=== PATIENT | male | born 1930 | race Caucasian/White ===

== ENCOUNTER 2016-05-17 08:29 | Emergency (ER) | payer MEDICARE, BC ==
[2016-05-17 08:45] VITALS: BP 142/79; PULSE 66; RESP 18; TEMP 96.8
--- NOTE | 2016-05-17 09:17 | ED ---
General Adult HPI - General Chief complaint: Neuro Symptoms/Deficit Stated complaint: facial swelling, poss med reaction Time Seen by Provider: 05/17/16 08:48 Source: patient, RN notes reviewed, old records reviewed Mode of arrival: ambulatory Limitations: no limitations - History of Present Illness Initial comments: This is an 85-year-old male to the ER for evaluation of facial swelling. Patient has no medical history of stroke, patient recently had started lisinopril. The patient awoke this morning with swelling of his left foot, also heard by family. Patient denies neurological deficit denies of inability to swallow, denies shortness of breath. Patient has no other complaints aside for swelling of left lip and left side of face. No known allergens or contacts , no prior similar history - Related Data Home Medications Medication Instructions Recorded Confirmed Simvastatin [Zocor] 40 mg PO HS 03/22/14 05/17/16 metFORMIN HCL [Glucophage] 500 mg PO DAILY 03/22/14 05/17/16 Ascorbic Acid [Vitamin C] 500 mg PO DAILY 07/01/14 05/17/16 Aspirin EC [Ecotrin Low Dose] 81 mg PO HS 07/01/14 05/17/16 Esomeprazole Magnesium [NexIUM] 40 mg PO BID 07/01/14 05/17/16 Fluticasone Propionate [Flonase 1 spray EA NOSTRIL BID 07/01/14 05/17/16 Allergy Relief] Lutein 1 tab PO 1800 07/01/14 05/17/16 Montelukast Sodium 10 mg PO HS 07/01/14 05/17/16 Albuterol Sulfate [Ventolin HFA] 2 puff INHALATION RT-QID PRN 08/02/14 05/17/16 Cholecalciferol [Vitamin D3] 1,000 unit PO DAILY 08/02/14 05/17/16 Fluticasone/Salmeterol [Advair 1 inhalation PO BID 08/02/14 05/17/16 500-50 Diskus] Ipratropium-Albuterol Nebulize 3 ml INHALATION RT-Q6H PRN 09/01/14 05/17/16 [Duoneb 0.5 mg-3 mg/3 ml Soln] Lisinopril [Prinivil] 5 mg PO DAILY 05/17/16 05/17/16 Previous Rx's Medication Instructions Recorded predniSONE 10 mg PO DIRECTED #40 tab 03/31/16 Cefepime HCl [Maxipime] 2 gm IV Q12H #28 vial 06/28/15 Allergies Allergy/AdvReac Type Severity Reaction Status Date / Time shellfish derived Allergy MAKES Verified 05/17/16 08:45 HANDS RED AND ITCHY Sulfa (Sulfonamide Allergy Swelling Verified 05/17/16 08:45 Antibiotics) DUST,TREES,GRASS Allergy Wheezing Uncoded 05/17/16 08:45 Review of Systems ROS Statement: Those systems with pertinent positive or pertinent negative responses have been documented in the HPI. ROS Other: All systems not noted in ROS Statement are negative. Past Medical History Past Medical History: Asthma, Cancer, COPD, Diabetes Mellitus, GERD/Reflux, Hearing Disorder / Deafness, Hyperlipidemia, Osteoarthritis (OA), Pneumonia Additional Past Medical History / Comment(s): Prostate CA.skin cancer, gout FREQ Bronchitis and Pneumonia; RARE INFECTION IN LUNG -08/2014, PSEUDOMONAS TRACHEOBRONCHITIS. AORTIC PIG VALVE 2007. CORDOBA'S.hiatal hernia, diverticulitis,rt eye cataract. History of Any Multi-Drug Resistant Organisms: None Reported Past Surgical History: Cardiac Valve Replacement, Coronary Bypass/CABG, Hernia Repair, Prostate Surgery Additional Past Surgical History / Comment(s): Aortic Valve Replacement, TRIPLE CABG 2007. Prostatectomy. Resection of Basal Cell CA Leg; Hernia X3; PICC line, THEN Removal.nasal sx-deviated septum Past Anesthesia/Blood Transfusion Reactions: No Reported Reaction Past Psychological History: No Psychological Hx Reported Smoking Status: Never smoker Past Alcohol Use History: Rare Additional Past Alcohol Use History / Comment(s): Patient states that he is a lifelong nonsmoker. He denies any medical marijuana, marijuana or street drug use. He denies any alcohol use or abuse.served in the army. 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 He is currently living alone. He denies having any pets in the home. Past Drug Use History: None Reported - Past Family History Mother Family Medical History: Cancer, Congestive Heart Failure (CHF), Myocardial Infarction ([place]) Additional Family Medical History / Comment(s): heart disease Father Family Medical History: Cancer Additional Family Medical History / Comment(s): brother #1lung,brother #2 esophageal cancer Brother(s) Family Medical History: Cancer, Deep Vein Thrombosis (DVT) Additional Family Medical History / Comment(s): lung Sister(s) Family Medical History: Cancer Additional Family Medical History / Comment(s): lung ca General Exam - General Exam Comments Initial Comments: NIH of 0, no neurological deficit, patient is able to smile and cheek moves without difficulty difficulty, patient has good sensation Limitations: no limitations General appearance: alert, in no apparent distress Head exam: Present: atraumatic, normocephalic, normal inspection, other ( Patient does have swelling to the left lip, anterior aspect of left cheek) Eye exam: Present: normal appearance, PERRL, EOMI. Absent: scleral icterus, conjunctival injection, periorbital swelling ENT exam: Present: normal exam, mucous membranes moist Neck exam: Present: normal inspection. Absent: tenderness, meningismus, lymphadenopathy Respiratory exam: Present: normal lung sounds bilaterally. Absent: respiratory distress, wheezes, rales, rhonchi, stridor Cardiovascular Exam: Present: regular rate, normal rhythm, normal heart sounds. Absent: systolic murmur, diastolic murmur, rubs, gallop, clicks GI/Abdominal exam: Present: soft, normal bowel sounds. Absent: distended, tenderness, guarding, rebound, rigid Extremities exam: Present: normal inspection, full ROM, normal capillary refill. Absent: tenderness, pedal edema, joint swelling, calf tenderness Back exam: Present: normal inspection Neurological exam: Present: alert, oriented X3, CN II-XII intact Psychiatric exam: Present: normal affect, normal mood Skin exam: Present: warm, dry, intact, normal color. Absent: rash Course Vital Signs 05/17/16 08:41 Temperature 96.8 F L Pulse Rate 66 Respiratory 18 Rate Blood Pressure 142/79 O2 Sat by Pulse 96 Oximetry - Reevaluation(s) Reevaluation #1: 05/17/16 09:15 Patient discussed grater than 15 minutes regarding need to stop lisinopril, follow-up with Dr. Mendoza, patient given antihistamine steroids to return if symptoms worsen or any progressive shortness of breath Medical Decision Making - Medical Decision Making 85 male the ER for evaluation of edema, to tell if this is related to lisinopril use or dental disease or other issue, no infection noted in dental cavity, patient given steroids and antihistamines to did be discharged home Disposition Clinical Impression: Angioedema Disposition: HOME SELF-CARE Condition: Good Instructions: Angioedema (ED) Referrals: Adithya Mendoza MD [Primary Care Provider] - 1-2 days
[2016-05-17] MEDS ORDERED: FAMOTIDINE 20 MG TAB PO STA (09:19)
[2016-05-17] MEDS ORDERED: predniSONE 20 MG TAB PO STA (09:19)
[2016-05-17] MEDS ORDERED: diphenhydrAMINE 25 MG CAP PO STA (09:19)
== END 2016-05-17 09:27 | disposition home or self-care (01) ==
LOC: EC 08:29
DX: T78.3XXA Angioneurotic edema, initial encounter (principal); E11.9 Type 2 diabetes mellitus without complications; K21.9 Gastro-esophageal reflux disease without esophagitis; J44.9 Chronic obstructive pulmonary disease, unspecified; J45.909 Unspecified asthma, uncomplicated; E78.5 Hyperlipidemia, unspecified; Z95.1 Presence of aortocoronary bypass graft; Z95.3 Presence of xenogenic heart valve; Z79.82 Long term (current) use of aspirin; Z79.84 Long term (current) use of oral hypoglycemic drugs; Z79.51 Long term (current) use of inhaled steroids; Z79.899 Other long term (current) drug therapy; Z88.2 Allergy status to sulfonamides
CPT/HCPCS: 99284; J7512

== ENCOUNTER 2016-12-09 06:47 | Day surgery (SDC) | payer MEDICARE, BC ==
[2016-12-08 14:15] VITALS: BMI 26.6
[~2016-12-09 06:47] MED LIST: LACTATED RINGERS 1,000 ML IV SCH
[2016-12-09 07:14] VITALS: RESP 16; TEMP 97.8
[2016-12-09 07:33] LABS: Glucose,Whole Blood 102 mg/dL (75-99)
[2016-12-09] MEDS ORDERED: MIDAZOLAM 2 MG/2 ML VIAL ONE (07:39)
[2016-12-09] MEDS ORDERED: PROPOFOL 10 MG/ML 20 ML VIAL IV ONE (07:39)
[2016-12-09] MEDS ORDERED: fentaNYL (PF) 50 MCG/ML 2 ML AMP ONE (07:39)
--- NOTE | 2016-12-09 07:55 | P.PCN ---
Date of Procedure: 12/09/16 Procedure(s) Performed: BRIEF HISTORY: Patient is a 86-year-old, pleasant, white male, scheduled for an upper endoscopy as a part of surveillance of Cleaning's esophagus. PROCEDURE PERFORMED: Esophagogastroduodenoscopy with biopsy. PREOPERATIVE DIAGNOSIS: GERD/surveillance of Cleaning's esophagus. IV sedation per anesthesia. PROCEDURE: After informed consent was obtained, the patient was brought into the endoscopy unit. IV sedation was administered by Anesthesia under continuous monitoring. Initially the Olympus GIF-140 video endoscope was inserted into the mouth. Esophagus intubated without any difficulty. It was gradually advanced into the stomach and duodenum and carefully examined. The bulb and the second part of the duodenum appeared normal. The scope at this time was withdrawn to the stomach, adequately insufflated with air, and upon careful examination, mucosa of the antrum, body, cardia and the fundus appeared normal. The scope was then withdrawn into the esophagus. Small sliding Hiatal hernia noted. The GE junction was located at 39 cm from the incisors. There was a short segment of Cleaning's esophagus extending from 3839 cm from incisors and multiple biopsies were done from this area. The rest of the esophagus appeared normal. There were no erosions or ulcerations seen and the patient tolerated the procedure well. IMPRESSION: 1. 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 2. Small hiatal hernia. RECOMMENDATIONS: The findings of this examination were discussed with the patient as well as his family. He was advised to follow with the biopsy results. If the biopsy does not show any evidence of dysplasia, he can have a repeat upper endoscopy in 2 years.
[2016-12-09 08:25] VITALS: BP 138/75; PULSE 63
== END 2016-12-09 08:52 | disposition home or self-care (01) ==
LOC: ORWHC2ENDO 06:47
PROVIDERS: ATTEND Internal Medicine Gastroenterology
DX: K22.70 Barrett's esophagus without dysplasia (principal); K44.9 Diaphragmatic hernia without obstruction or gangrene; K21.9 Gastro-esophageal reflux disease without esophagitis; I25.10 Atherosclerotic heart disease of native coronary artery without angina pectoris; J45.909 Unspecified asthma, uncomplicated; Z90.79 Acquired absence of other genital organ(s); Z85.46 Personal history of malignant neoplasm of prostate; Z95.1 Presence of aortocoronary bypass graft; Z95.2 Presence of prosthetic heart valve; Z79.51 Long term (current) use of inhaled steroids; Z79.84 Long term (current) use of oral hypoglycemic drugs; Z79.899 Other long term (current) drug therapy; Z88.2 Allergy status to sulfonamides
CPT/HCPCS: 88305; 43239; J2250; J3010; J2704

== ENCOUNTER → 2017-05-24 | Outpatient (CLI) | payer MEDICARE, BC ==
--- NOTE | 2017-05-24 16:02 | XR ---
EXAMINATION TYPE: XR chest 2V DATE OF EXAM: 05/24/2017 COMPARISON: Prior chest x-ray 07/27/[address] chest abdomen pelvis 07/27/2015 HISTORY: Acute bronchitis, cough TECHNIQUE: Frontal and lateral views of the chest are obtained. FINDINGS: Patient is post median sternotomy. Cardiac mediastinal silhouette, pulmonary vascularity a nd kamila are stable. The aorta is dense. No evident airspace disease, pneumothorax, or pleural effusio n. Bronchial wall thickening is noted. Some minimal patchy density present at the lung bases. There i s prominent lung volume suggesting underlying COPD. Coronary artery calcifications are present. IMPRESSION: Correlate for bronchitis, reactive airways disease. Probable basilar atelectasis or scar ring. Follow-up as indicated.
== END | disposition home or self-care (01) ==
LOC: RADXRMAIN 15:31
PROVIDERS: ATTEND Physician Assistant
DX: J20.9 Acute bronchitis, unspecified (principal)
CPT/HCPCS: 71046

== ENCOUNTER 2018-05-25 06:12 | Day surgery (SDC) | payer MEDICARE, BC ==
[~2018-05-25 06:12] MED LIST changes: +DEXAMETHASONE SOD PHOSPHATE 10 MG/ML 1 ML VIAL IV ONE; +HEPARIN SODIUM,PORCINE 5,000 UNIT/ML 1 ML VIAL SQ ONE; -LACTATED RINGERS 1,000 ML IV SCH; +LIDOCAINE 1% 20 ML VIAL (10MG/ML) FOR IV START INTRADERMA PRN; +MIDAZOLAM (PF) 2 MG/2 ML VIAL IV PRN; +ONDANSETRON 4 MG/2 ML VIAL IVP ONE; +SCOPOLAMINE 1.5MG/72HR PATCH TRANSDERM ONE; +ceFAZolin IN SWFI 2 GM/20 ML SYRINGE IVP ONE
[2018-05-25] MEDS ORDERED: LACTATED RINGERS 1,000 ML IV ONE ×2 (06:40→09:38)
[2018-05-25 06:47] LABS: Glucose,Whole Blood 100 mg/dL (75-99)
[2018-05-25] MEDS ORDERED: ROCURONIUM BROMIDE 10 MG/ML 10 ML VIAL IV ONE (07:56)
[2018-05-25] MEDS ORDERED: fentaNYL (PF) 50 MCG/ML 2 ML AMP ONE (07:56)
[2018-05-25] MEDS ORDERED: KETOROLAC 30 MG/ML 1 ML VIAL ONE (07:56)
[2018-05-25] MEDS ORDERED: SUCCINYLCHOLINE CHLORIDE 100 MG/5 ML SYR IV ONE (07:56)
[2018-05-25] MEDS ORDERED: NEOSTIGMINE 1 MG/ML 10 ML VIAL ONE (07:56)
[2018-05-25] MEDS ORDERED: PROPOFOL 10 MG/ML 20 ML VIAL IV ONE (07:56)
[2018-05-25] MEDS ORDERED: LIDOCAINE 1% INJ 10MG/ML (20 ML MDV) ONE (07:56)
[2018-05-25] MEDS ORDERED: GLYCOPYRROLATE 0.2 MG/ML 2 ML VIAL ONE (07:56)
[2018-05-25] MEDS ORDERED: MIDAZOLAM 2 MG/2 ML VIAL ONE (07:56)
[2018-05-25] MEDS ORDERED: PHENYLEPHRINE-0.9% NACL SYG 1 MG/10 ML SYRINGE ONE (07:56)
--- NOTE | 2018-05-25 07:58 | P.GSHP ---
History of Present Illness H&P Date: 05/25/18 Chief Complaint: Umbilical hernia This is a 87-year-old male who's dull pain in his umbilicus. Patient seen Miya found have a 4 cm umbilical hernia. The hernia appears to contain omentum. Past Medical History Past Medical History: Asthma, Cancer, COPD, Diabetes Mellitus, Hearing Disorder / Deafness, Hyperlipidemia, Osteoarthritis (OA), Pneumonia Additional Past Medical History / Comment(s): hx Prostate Cancer, skin cancer, gout, FREQ Bronchitis and Pneumonia; RARE INFECTION IN LUNG 08/01/2014- PSEUDOMONAS TRACHEOBRONCHITIS. CORDOBA'S esophagus,.hiatal hernia, hx diverticulitis, borderline diabetes-"supposed to watch diet", pancreatic cysts, "weak bladder", anemia History of Any Multi-Drug Resistant Organisms: None Reported Past Surgical History: Cardiac Valve Replacement, Coronary Bypass/CABG, Heart Catheterization, Hernia Repair, Prostate Surgery Additional Past Surgical History / Comment(s): Aortic (pig) Valve Replacement and TRIPLE CABG 2006. Resection of Basal Cell CA Leg; PICC line/later removed, nasal sx-deviated septum, paul cataracts, Past Anesthesia/Blood Transfusion Reactions: No Reported Reaction Smoking Status: Never smoker - Past Family History Mother Family Medical History: Congestive Heart Failure (CHF), Myocardial Infarction ( [place]) Additional Family Medical History / Comment(s): heart disease Father Family Medical History: Cancer Additional Family Medical History / Comment(s): lung and brain Brother(s) Family Medical History: Cancer, Deep Vein Thrombosis (DVT) Additional Family Medical History / Comment(s): lung Sister(s) Family Medical History: Cancer Additional Family Medical History / Comment(s): lung ca Medications and Allergies Home Medications Medication Instructions Recorded Confirmed Type Simvastatin [Zocor] 40 mg PO HS 03/22/14 05/23/18 History metFORMIN HCL [Glucophage] 500 mg PO DAILY 03/22/14 05/23/18 History Ascorbic Acid [Vitamin C] 500 mg PO DAILY 07/01/14 05/23/18 History Aspirin EC [Ecotrin Low Dose] 81 mg PO HS 07/01/14 05/23/18 History Esomeprazole Magnesium [NexIUM] 40 mg PO QAM 07/01/14 05/23/18 History Fluticasone Propionate [Flonase 1 spray EA NOSTRIL DAILY PRN 07/01/14 05/23/18 History Allergy Relief] Lutein 6 mg PO DAILY 07/01/14 05/23/18 History Montelukast Sodium 10 mg PO HS 07/01/14 05/23/18 History Albuterol Sulfate [Ventolin HFA] 2 puff INHALATION QID PRN 08/02/14 05/23/18 History Cholecalciferol [Vitamin D3] 1,000 unit PO HS 08/02/14 05/23/18 History Fluticasone/Salmeterol [Advair 1 inhalation PO BID 08/02/14 05/23/18 History 500-50 Diskus] [place]-3 Fatty Acids/Fish Oil [Fish 1 each PO DAILY 05/23/18 05/23/18 History Oil 1,000 mg Softgel] Allergies Allergy/AdvReac Type Severity Reaction Status Date / Time shellfish derived Allergy MAKES Verified 05/23/18 12:58 HANDS RED AND ITCHY Sulfa (Sulfonamide Allergy Swelling Verified 05/23/18 12:27 Antibiotics) DUST,TREES,GRASS Allergy Wheezing Uncoded 05/23/18 12:27 Surgical - Exam Vital Signs Temp Pulse Resp BP Pulse Ox 97.8 F 72 18 150/70 95 05/25/18 06:28 05/25/18 06:28 05/25/18 06:28 05/25/18 06:28 05/25/18 06:28 - General well developed, well nourished, no distress - Eyes PERRL - ENT normal pinna - Neck no masses - Respiratory normal expansion - Cardiovascular Rhythm: regular - Abdomen Abdomen: soft, non tender Hernia: umbilical (4 cm) Results - Labs Abnormal Lab Results - Last 24 Hours (Table) 05/25/18 Range/Units 06:44 POC Glucose (mg/dL) 100 H (75-99) mg/dL Assessment and Plan Assessment: Umbilical hernia. We'll perform laparoscopic robotic-assisted repair.
[2018-05-25] MEDS ORDERED: BUPIVACAIN-EPI 0.25%-1:200,000 30 ML VIAL SQ ONE (08:21)
[2018-05-25 09:31] LABS: Glucose,Whole Blood 184 mg/dL (75-99)
[2018-05-25] MEDS: HYDROmorphone 0.5 MG/0.5 ML SYRINGE IVP PRN ×3 (09:35→10:50)
[2018-05-25] MEDS ORDERED: HYDROcodone/APAP 5-325MG 1 EACH TAB PO PRN (09:38)
[2018-05-25] MEDS ORDERED: NALOXONE 0.4 MG/ML 1 ML VIAL IV PRN (09:38)
[2018-05-25] MEDS ORDERED: HYDROmorphone 0.5 MG/0.5 ML SYRINGE IVP PRN (09:38)
[2018-05-25] MEDS ORDERED: ACETAMINOPHEN TAB 325 MG TAB PO PRN (09:38)
[2018-05-25] MEDS ORDERED: ONDANSETRON 4 MG/2 ML VIAL IVP PRN (09:38)
--- NOTE | 2018-05-25 09:48 | P.OP ---
Date of Procedure: 05/25/18 Preoperative Diagnosis: Right chest wall sebaceous cyst Umbilical hernia Postoperative Diagnosis: Right chest wall sebaceous cyst Umbilical hernia Procedure(s) Performed: Laparoscopic robotic repair of umbilical hernia Excision of right chest wall sebaceous cyst Anesthesia: WILY Surgeon: Konstantin Aviles Estimated Blood Loss (ml): 5 Pathology: other (Sebaceous cyst 70) Condition: stable Disposition: PACU Description of Procedure: The patient was placed on the operating table in the supine position. He received general anesthesia. His abdomen was prepped and draped usual fashion. Using a 5 mm optical trocar under direct visualization the peritoneal cavity was entered in the left upper quadrant. The abdomen was then insufflated. The laparoscope was placed back into the perineal cavity. Next a 8 mm robotic trocar was placed in the left lower quadrant and a 12 mm robotic trocar was placed in the left lateral position. The original 5 mm trocar was exchanged for a 8 mm robotic trocar. The patient's placed in the left side up position. And the patient was undocked the robot. The umbilical hernia was visualized. Using hook cautery the peritoneum over the umbilical hernia was excised. The fascial opening was repaired using 0V LOC suture. Next a piece of 11 cm round ventral light ST mesh was placed into the. Cavity and secured with 2 OV lock suture. The patient was undocked the robot. The needles were retrieved. The fascia of the 12 mm trocar site was closed with 0 Ethibond suture. Skin was closed interrupted 3-0 Monocryl suture. Next, the right chest wall sebaceous cyst was incised. The cyst measured prostate 4 cm diameter. Using blunt and sharp dissection with cautery the cyst was excised. The Bovie hemostasis. Skin was closed interrupted 3-0 Monocryl suture. Dermabond dressings was applied. Patient tolerated the procedure well and was sent to recovery room stable condition.
[2018-05-25] MEDS: LACTATED RINGERS 1,000 ML IV SCH ×2 (10:04→13:25)
[2018-05-25 15:14] VITALS: BMI 25.5
[2018-05-25] MEDS ORDERED: FLUTICASONE 50MCG/SPRAY NASAL 16GM EA NOSTRIL PRN (16:19)
[2018-05-25] MEDS ORDERED: ALBUTEROL NEBULIZED 2.5 MG/3 ML INHALATION PRN (16:19)
--- NOTE | 2018-05-25 16:24 | P.CONS ---
History of Present Illness - History of Present Illness 87-year-old male is post hernia repair and cyst removal from chest. Patient does have history of COPD/asthma patient is on diabetes type 2 remote history of diverticulitis Review of Systems Respiratory: Reports cough, Reports wheezing Gastrointestinal: Reports abdominal pain Past Medical History Past Medical History: Asthma, Cancer, COPD, Diabetes Mellitus, Hearing Disorder / Deafness, Hyperlipidemia, Osteoarthritis (OA), Pneumonia Additional Past Medical History / Comment(s): hx Prostate Cancer, skin cancer, gout, FREQ Bronchitis and Pneumonia; RARE INFECTION IN LUNG 08/01/2014- PSEUDOMONAS TRACHEOBRONCHITIS. CORDOBA'S esophagus,.hiatal hernia, hx diverticulitis, borderline diabetes-"supposed to watch diet", pancreatic cysts, "weak bladder", anemia History of Any Multi-Drug Resistant Organisms: None Reported Past Surgical History: Cardiac Valve Replacement, Coronary Bypass/CABG, Heart Catheterization, Hernia Repair, Prostate Surgery Additional Past Surgical History / Comment(s): Aortic (pig) Valve Replacement and TRIPLE CABG 2006. Resection of Basal Cell CA Leg; PICC line/later removed, nasal sx-deviated septum, paul cataracts, Past Anesthesia/Blood Transfusion Reactions: No Reported Reaction Smoking Status: Unknown if ever smoked - Past Family History Mother Family Medical History: Congestive Heart Failure (CHF), Myocardial Infarction ( [place]) Additional Family Medical History / Comment(s): heart disease Father Family Medical History: Cancer Additional Family Medical History / Comment(s): lung and brain Brother(s) Family Medical History: Cancer, Deep Vein Thrombosis (DVT) Additional Family Medical History / Comment(s): lung Sister(s) Family Medical History: Cancer Additional Family Medical History / Comment(s): lung ca Medications and Allergies Home Medications Medication Instructions Recorded Confirmed Type Simvastatin [Zocor] 40 mg PO HS 03/22/14 05/23/18 History metFORMIN HCL [Glucophage] 500 mg PO DAILY 03/22/14 05/23/18 History Ascorbic Acid [Vitamin C] 500 mg PO DAILY 07/01/14 05/23/18 History Aspirin EC [Ecotrin Low Dose] 81 mg PO HS 07/01/14 05/23/18 History Esomeprazole Magnesium [NexIUM] 40 mg PO QAM 07/01/14 05/23/18 History Fluticasone Propionate [Flonase 1 spray EA NOSTRIL DAILY PRN 07/01/14 05/23/18 History Allergy Relief] Lutein 6 mg PO DAILY 07/01/14 05/23/18 History Montelukast Sodium 10 mg PO HS 07/01/14 05/23/18 History Albuterol Sulfate [Ventolin HFA] 2 puff INHALATION QID PRN 08/02/14 05/23/18 History Cholecalciferol [Vitamin D3] 1,000 unit PO HS 08/02/14 05/23/18 History Fluticasone/Salmeterol [Advair 1 inhalation PO BID 08/02/14 05/23/18 History 500-50 Diskus] [place]-3 Fatty Acids/Fish Oil [Fish 1 each PO DAILY 05/23/18 05/23/18 History Oil 1,000 mg Softgel] Docusate [Colace] 100 mg PO BID #30 capsule 05/25/18 Rx HYDROcodone/APAP 7.5-325MG [[place] 1 tab PO Q4H PRN 3 Days #18 tab 05/25/18 Rx 7.5-325] Allergies Allergy/AdvReac Type Severity Reaction Status Date / Time shellfish derived Allergy MAKES Verified 05/23/18 12:58 HANDS RED AND ITCHY Sulfa (Sulfonamide Allergy Swelling Verified 05/23/18 12:27 Antibiotics) DUST,TREES,GRASS Allergy Wheezing Uncoded 05/23/18 12:27 Physical Exam Vitals: Vital Signs Temp Pulse Pulse Pulse Resp BP BP 05/25/18 16:13 97.5 F L 78 18 162/75 05/25/18 13:55 97.5 F L 81 18 167/84 05/25/18 13:00 81 16 120/72 05/25/18 12:30 83 16 120/71 05/25/18 12:00 79 16 118/68 05/25/18 11:30 78 16 125/70 05/25/18 11:00 86 16 122/63 05/25/18 10:45 86 16 104/71 05/25/18 10:30 88 16 122/70 05/25/18 10:15 87 18 134/68 05/25/18 10:00 88 16 164/78 05/25/18 09:43 90 16 188/86 05/25/18 09:27 91 16 182/80 05/25/18 09:12 97.4 F L 100 16 187/85 05/25/18 06:28 97.8 F 72 18 150/70 Pulse Ox 05/25/18 16:13 95 05/25/18 13:55 95 05/25/18 13:00 92 L 05/25/18 12:30 93 L 05/25/18 12:00 97 05/25/18 11:30 97 05/25/18 11:00 95 05/25/18 10:45 98 05/25/18 10:30 98 05/25/18 10:15 94 L 05/25/18 10:00 92 L 05/25/18 09:43 96 05/25/18 09:27 98 05/25/18 09:12 187 H 05/25/18 06:28 95 Intake and Output 05/25/18 05/25/18 05/25/18 06:59 14:59 22:59 Intake Total 300 950 Output Total 5 Balance 300 945 Intake: IV 300 950 Output: Estimated Blood Loss 5 - Constitutional General appearance: mild distress - EENT Eyes: PERRLA Ears: bilateral: normal - Neck Neck: normal ROM - Respiratory Respiratory: bilateral: wheezing - Cardiovascular Rhythm: regular Abnormal Heart Sounds: systolic murmur - Gastrointestinal General gastrointestinal: soft - Integumentary Integumentary: normal - Neurologic Neurologic: CNII-XII intact - Musculoskeletal Musculoskeletal: gait normal - Psychiatric Psychiatric: A&O x's 3, appropriate affect, intact judgment & insight Results Labs: Abnormal Lab Results - Last 24 Hours (Table) 05/25/18 05/25/18 Range/Units 06:44 09:26 POC Glucose (mg/dL) 100 H 184 H (75-99) mg/dL Assessment and Plan Plan: Assessment Hernia repair History of COPD/asthma bronchiolitis Diabetes type 2 Hyperlipidemia History of prostate cancer History of cardiac valve replacement Plan Home medications reordered CBC CMP Inhaler ordered for wheezing We'll follow patient for any changes in condition
[2018-05-25 16:27] LABS: Glucose,Whole Blood 166 mg/dL (75-99)
[2018-05-25 16:58] LABS: Calcium 8.8 mg/dL (8.4-10.2); HCT 38.3 % (39.0-53.0); HGB 12.1 gm/dL (13.0-17.5); MCH 28.1 pg (25.0-35.0); MCHC 31.6 g/dL (31.0-37.0); MCV 88.9 fL (80.0-100.0); RBC 4.31 m/uL (4.30-5.90); RDW 14.3 % (11.5-15.5); Total Bilirubin 0.5 mg/dL (0.2-1.3); Total Protein 6.9 g/dL (6.3-8.2); WBC 7.6 k/uL (3.8-10.6)
[2018-05-25 16:59] LABS: Basophils % (A) 0 %; Eosinophils % (A) 1 %; Lymphocytes # (A) 0.7 k/uL (1.0-4.8); Lymphocytes % (A) 10 %; Mean Platelet Volume 6.2; Monocytes # (A) 0.2 k/uL (0-1.0); Monocytes % (A) 2 %; Neutrophils # (A) 6.7 k/uL (1.3-7.7); Neutrophils % (A) 88 %; Platelet Count 210 k/uL (150-450)
[2018-05-25] MEDS: SYMBICORT 160-4.5 MCG INHALER INHALATION SCH (19:09)
[2018-05-25 20:29] LABS: Glucose,Whole Blood 149 mg/dL (75-99)
[2018-05-25] MEDS ORDERED: ASPIRIN 81 MG PO SCH (21:00)
[2018-05-25] MEDS ORDERED: MONTELUKAST 10 MG TAB PO SCH (21:00)
[2018-05-25] MEDS ORDERED: CHOLECALCIFEROL 1,000 UNIT TAB PO SCH (21:00)
[2018-05-25] MEDS ORDERED: ATORVASTATIN 20 MG TAB PO SCH (21:00)
[2018-05-25] MEDS: DOCUSATE 100 MG CAP PO SCH (21:52)
[2018-05-26 05:08] VITALS: TEMP 98.3
[2018-05-26 06:34] LABS: Glucose,Whole Blood 96 mg/dL (75-99)
[2018-05-26] MEDS ORDERED: PANTOPRAZOLE 40 MG TABLET PO SCH (07:30)
[2018-05-26] MEDS: SYMBICORT 160-4.5 MCG INHALER INHALATION SCH (08:16)
[2018-05-26 08:30] VITALS: BP 163/76; PULSE 60; RESP 18
[2018-05-26] MEDS: DOCUSATE 100 MG CAP PO SCH (08:50)
[2018-05-26] MEDS ORDERED: LUTEIN 6 MG PO SCH (09:00)
[2018-05-26] MEDS ORDERED: NON-FORMULARY DRUG (Omega-3 Fatty Acids/Fish Oil [Fish Oil 1,000 Mg Softgel] 1 EACH) PO SCH (09:00)
[2018-05-26] MEDS ORDERED: metFORMIN 500 MG TAB PO SCH (09:00)
[2018-05-26] MEDS ORDERED: ENOXAPARIN 40 MG/0.4 ML SYRINGE SQ SCH (09:00)
--- NOTE | 2018-05-26 10:07 | P.DS ---
Providers Expected date of discharge: 05/26/18 Attending physician: Konstantin Aviles Consults: 05/25/18 09:38 Consult Physician Routine Consulting Provider: Adithya Mendoza Consult Reason/Comments: Medical management Do you want consulting provider notified?: Yes Primary care physician: Adithya Mendoza Hospital Course: 87-year-old male who underwent elective repair of umbilical hernia and excision of right chest wall sebaceous cyst. Patient is doing well postoperatively without any immediate patients. Patient has been up ambulating in the hallway. His pain is tolerable at this time. He is tolerating oral intake. Denies nausea or vomiting. Vital signs have been stable. He is stable for discharge home today. He is to follow up with Dr. Aviles in 1 week. Please see EMR for further hospital course details. DISCHARGE DIAGNOSIS: 1. Status post laparoscopic robotic repair of an umbilical hernia and excision of right chest wall sebaceous cyst Nurse practitioner note has been reviewed by physician. Signing provider agrees with the documented findings, assessment, and plan of care. Plan - Discharge Summary Discharge Rx Participant: No New Discharge Prescriptions: New HYDROcodone/APAP 7.5-325MG [[place] 7.5-325] 1 tab PO Q4H PRN 3 Days #18 tab PRN Reason: Pain Docusate [Colace] 100 mg PO BID #30 capsule No Action metFORMIN HCL [Glucophage] 500 mg PO DAILY Simvastatin [Zocor] 40 mg PO HS Montelukast Sodium 10 mg PO HS Aspirin EC [Ecotrin Low Dose] 81 mg PO HS Fluticasone Propionate [Flonase Allergy Relief] 1 spray EA NOSTRIL DAILY PRN PRN Reason: Congestion Ascorbic Acid [Vitamin C] 500 mg PO DAILY Esomeprazole Magnesium [NexIUM] 40 mg PO QAM Lutein 6 mg PO DAILY Cholecalciferol [Vitamin D3] 1,000 unit PO HS Fluticasone/Salmeterol [Advair 500-50 Diskus] 1 inhalation PO BID Albuterol Sulfate [Ventolin HFA] 2 puff INHALATION QID PRN PRN Reason: sob [place]-3 Fatty Acids/Fish Oil [Fish Oil 1,000 mg Softgel] 1 each PO DAILY Discharge Medication List Simvastatin [Zocor] 40 mg PO HS 03/22/14 [History] metFORMIN HCL [Glucophage] 500 mg PO DAILY 03/22/14 [History] Ascorbic Acid [Vitamin C] 500 mg PO DAILY 07/01/14 [History] Aspirin EC [Ecotrin Low Dose] 81 mg PO HS 07/01/14 [History] Esomeprazole Magnesium [NexIUM] 40 mg PO QAM 07/01/14 [History] Fluticasone Propionate [Flonase Allergy Relief] 1 spray EA NOSTRIL DAILY PRN 08/10 [History] Lutein 6 mg PO DAILY 07/01/14 [History] Montelukast Sodium 10 mg PO HS 07/01/14 [History] Albuterol Sulfate [Ventolin HFA] 2 puff INHALATION QID PRN 08/02/14 [History] Cholecalciferol [Vitamin D3] 1,000 unit PO HS 08/02/14 [History] Fluticasone/Salmeterol [Advair 500-50 Diskus] 1 inhalation PO BID 08/02/14 [ History] [place]-3 Fatty Acids/Fish Oil [Fish Oil 1,000 mg Softgel] 1 each PO DAILY [History] Docusate [Colace] 100 mg PO BID #30 capsule 05/25/18 [Rx] HYDROcodone/APAP 7.5-325MG [[place] 7.5-325] 1 tab PO Q4H PRN 3 Days #18 tab 05/25 [Rx] Follow up Appointment(s)/Referral(s): Konstantin Aviles MD [STAFF PHYSICIAN] - 06/02/18 2:40 pm Activity/Diet/Wound Care/Special Instructions: No driving while taking [place] No lifting over 10 pounds You may shower. No soaking or tub baths Very light activity until you are reevaluated at your follow up appointment with your surgeon
[2018-05-26] MEDS: LACTATED RINGERS 1,000 ML IV SCH (10:48)
--- NOTE | 2018-05-26 11:51 | P.PN ---
Subjective Patient sitting in chair at bedside. States he only has some aching pain to his abdomen. Lungs are clear. Medically cleared for discharge Objective - Vital Signs Vital signs: Vital Signs Temp 98.3 F 05/26/18 08:00 Pulse 60 05/26/18 08:00 Resp 18 05/26/18 08:00 BP 163/76 05/26/18 08:00 Pulse Ox 96 05/26/18 08:00 Intake & Output 05/25/18 05/26/18 05/26/18 18:59 06:59 18:59 Intake Total 1150 420 Output Total 5 Balance 1145 420 Weight 73.5 kg Intake: IV 950 Oral 200 420 Output: Estimated Blood Loss 5 Other: Voiding Method Toilet # Voids 1 1 - Constitutional General appearance: Present: mild distress - EENT Eyes: Present: PERRLA Ears: bilateral: normal - Respiratory Respiratory: bilateral: CTA - Cardiovascular Rhythm: regular - Gastrointestinal General gastrointestinal: Present: soft Localized gastrointestinal: tender: diffuse - Integumentary Integumentary: Present: normal - Neurologic Neurologic: Present: CNII-XII intact - Psychiatric Psychiatric: Present: A&O x's 3, appropriate affect, intact judgment & insight - Labs CBC & Chem 7: 05/25/18 16:24 05/25/18 16:24 Labs: Abnormal Lab Results - Last 24 Hours (Table) 05/25/18 05/25/18 05/25/18 Range/Units 16:23 16:24 16:24 Hgb 12.1 L (13.0-17.5) gm/dL Hct 38.3 L (39.0-53.0) % Lymphocytes # 0.7 L (1.0-4.8) k/uL BUN 22 H (9-20) mg/dL Glucose 158 H (74-99) mg/dL POC Glucose (mg/dL) 166 H (75-99) mg/dL 05/25/18 Range/Units 20:18 Hgb (13.0-17.5) gm/dL Hct (39.0-53.0) % Lymphocytes # (1.0-4.8) k/uL BUN (9-20) mg/dL Glucose (74-99) mg/dL POC Glucose (mg/dL) 149 H (75-99) mg/dL Assessment and Plan Plan: Assessment postoperative hernia repair for umbilical hernia History of diverticulitis History of COPD/asthma bronchiolitis Diabetes type 2 Hyperlipidemia Prostate cancer History of cardiac valve replacement Plan Patient medically cleared for discharge
[2018-05-26] MEDS ORDERED: ASCORBIC ACID 500 MG TAB PO SCH (12:00)
--- NOTE | 2018-05-26 12:04 | P.PN ---
Progress Note - Text Addendum COPD/asthma mild intermittent
== END 2018-05-26 11:47 | disposition home or self-care (01) ==
LOC: OR 06:12 → 1SOBS 13:20 → OR 05-26 11:47
PROVIDERS: ATTEND Surgery
DX: K42.9 Umbilical hernia without obstruction or gangrene (principal); L72.0 Epidermal cyst; E78.5 Hyperlipidemia, unspecified; I25.10 Atherosclerotic heart disease of native coronary artery without angina pectoris; E11.9 Type 2 diabetes mellitus without complications; K21.9 Gastro-esophageal reflux disease without esophagitis; M19.90 Unspecified osteoarthritis, unspecified site; H91.90 Unspecified hearing loss, unspecified ear; J44.9 Chronic obstructive pulmonary disease, unspecified; J45.20 Mild intermittent asthma, uncomplicated; Z88.2 Allergy status to sulfonamides; Z95.2 Presence of prosthetic heart valve; Z87.01 Personal history of pneumonia (recurrent); Z79.84 Long term (current) use of oral hypoglycemic drugs; Z79.82 Long term (current) use of aspirin; Z79.899 Other long term (current) drug therapy; Z85.46 Personal history of malignant neoplasm of prostate; Z95.1 Presence of aortocoronary bypass graft; Z82.49 Family history of ischemic heart disease and other diseases of the circulatory system; Z79.51 Long term (current) use of inhaled steroids; Z91.013 Allergy to seafood; Z91.048 Other nonmedicinal substance allergy status
CPT/HCPCS: 49652; 11404; 94640; 88304; 80053; 85025; C1781; J2250; J1644; J1100; J2710; J2405; J2001; J1650; J3010; J1885; J2370; J0330; J2704; J1170; J0690

== ENCOUNTER → 2018-06-16 | Outpatient (CLI) | payer MEDICARE, BC ==
--- NOTE | 2018-06-17 08:23 | XR ---
EXAMINATION TYPE: XR chest 2V DATE OF EXAM: 06/16/2018 COMPARISON: Prior chest x-ray 05/24/2017 HISTORY: Cough and congestion, acute bronchitis TECHNIQUE: Frontal and lateral views of the chest are obtained. FINDINGS: Patient is post median sternotomy. Aorta is dense. Strand-like densities at the lung bases are stable finding. Bronchial wall thickening is noted. 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 There is no focal air space opacity, pleural effusion, or pneumothorax seen. The cardiac silhouet te size is within normal limits. The osseous structures are intact. IMPRESSION: Probable basilar atelectasis or scarring. Correlate for bronchitis, reactive airways dis ease, COPD.
== END | disposition home or self-care (01) ==
LOC: RADXRMAIN 15:48
PROVIDERS: ATTEND Physician Assistant
DX: J20.9 Acute bronchitis, unspecified (principal)
CPT/HCPCS: 71046

== ENCOUNTER → 2019-03-04 | Outpatient (CLI) | payer MEDICARE, BC ==
--- NOTE | 2019-03-06 09:32 | MR ---
EXAMINATION TYPE: MR pancreas wo/w con DATE OF EXAM: 03/04/2019 COMPARISON: HISTORY: Cyst of pancreas CONTRAST: Standard multiplanar, multisequence MRI departmental protocol utilizing 7 mL intravenous Gadavist rosibel olinium contrast. FINDINGS: PANCREAS: Pancreas overall redemonstrates some mild generalized fat replaced atrophy. Pancreatic duct is not mike spiciously dilated. At level of pancreatic head there is redemonstration of oval well-defined thin-wa lled cyst or cystic lesion measuring 2.9 cm craniocaudal dimension by 1.8 cm transversely by 1.6 cm A P diameter not significantly changed in size or appearance from older studies back through 2014 and p rior MRI. There are some additional small thin walled cysts throughout the head body and tail of the pancreas, for reference 3-4 stable tiny cystic lesions are redemonstrated under 6 mm in size felt stable from prior. There is stable 1.2 cm thin walled cyst or cystic lesion near region of uncinate process and i nferior pancreaticoduodenal groove. Some of the cystic lesions appear within the pancreatic gland and some appear adjacent to pancreatic gland. No main ductal communication is clearly evident. OTHER: Susceptibility artifact from inferior sternal wires is redemonstrated. Heart is enlarged. There is redemonstration of small dependent gallstone in gallbladder seen. No abnormal gallbladder wa ll thickening or surrounding inflammatory changes seen. A few punctate cysts scattered throughout the liver are redemonstrated. Spleen and both adrenal glands are normal in size. There is cortical thinning in both kidneys seen. There are few simple appearing cysts redemonstrated scattered throughout the left kidney. Bowel gas pattern nonspecific. There is no concerning abdominal fluid collection. There is no greater than 1 cm abdominal lymph nodes. There is levoconvex scoliosis centered at L3 lev el. There is redemonstration of spinal canal stenosis due to facet arthropathy and disc herniation L3 -L4 level and L4- L5 level. Retroaortic left renal vein is redemonstrated which is normal variant. IMPRESSION: 1. Stable multicystic changes lesions within the pancreas with the main dominant lesion also stable i n size. Findings of stability of cystic lesions strongly favor benign process. Differential includes pancreatic pseudocyst, cystic neoplasm, and sidebranch IPMNs. Consider continued annual MRI surveilla nce. 2. Cholelithiasis. 3. Cardiomegaly.
== END | disposition home or self-care (01) ==
LOC: RADMRIMAIN 08:25
PROVIDERS: ATTEND Internal Medicine Gastroenterology
DX: K86.2 Cyst of pancreas (principal); K80.20 Calculus of gallbladder without cholecystitis without obstruction; I51.7 Cardiomegaly
CPT/HCPCS: 74183; A9585

== ENCOUNTER 2020-04-10 06:55 | Day surgery (SDC) | payer MEDICARE, BC ==
[2020-04-08 10:06] VITALS: BMI 26.1
[~2020-04-10 06:55] MED LIST changes: -DEXAMETHASONE SOD PHOSPHATE 10 MG/ML 1 ML VIAL IV ONE; -HEPARIN SODIUM,PORCINE 5,000 UNIT/ML 1 ML VIAL SQ ONE; +LACTATED RINGERS 1,000 ML IV SCH; -LIDOCAINE 1% 20 ML VIAL (10MG/ML) FOR IV START INTRADERMA PRN; -MIDAZOLAM (PF) 2 MG/2 ML VIAL IV PRN; -ONDANSETRON 4 MG/2 ML VIAL IVP ONE; -SCOPOLAMINE 1.5MG/72HR PATCH TRANSDERM ONE; -ceFAZolin IN SWFI 2 GM/20 ML SYRINGE IVP ONE
[2020-04-10 07:42] VITALS: TEMP 97.7
[2020-04-10 07:42] LABS: Glucose,Whole Blood 111 mg/dL (75-99)
[2020-04-10] MEDS ORDERED: PROPOFOL 10 MG/ML 20 ML VIAL IV ONE (07:54)
[2020-04-10] MEDS ORDERED: LIDOCAINE 1% INJ 10MG/ML (20 ML MDV) ONE (07:54)
--- NOTE | 2020-04-10 08:06 | P.PCN ---
Date of Procedure: 04/10/20 Procedure(s) Performed: BRIEF HISTORY: Patient is a 89-year-old, pleasant, male scheduled for an upper endoscopy as a part of surveillance of Cleaning's esophagus.. PROCEDURE PERFORMED: Esophagogastroduodenoscopy with biopsy. PREOPERATIVE DIAGNOSIS: Surveillance of Cleaning's esophagus. IV sedation per anesthesia. PROCEDURE: After informed consent was obtained, the patient was brought into the endoscopy unit. IV sedation was administered by Anesthesia under continuous monitoring. Initially the Olympus GIF-140 video endoscope was inserted into the mouth. Esophagus intubated without any difficulty. It was gradually advanced into the stomach and duodenum and carefully examined. The bulb and the second part of the duodenum appeared normal. The scope at this time was withdrawn to the stomach, adequately insufflated with air, and upon careful examination, mucosa of the antrum, body, cardia and the fundus appeared normal. The scope was then withdrawn into the esophagus. The GE junction was located at 40 cm from the incisors. Small sliding Hiatal hernia noted. There was a short segment Rumely tt's esophagus extending 1 cm proximal to the GE junction and biopsies were done from this area. The esophagus appeared normal. There were no erosions or ulcerations seen and the patient tolerated the procedure well. IMPRESSION: 1. 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 2. Small hiatal hernia. RECOMMENDATIONS: The findings of this examination were discussed with the patient as well as a family. She will be was advised to follow with the biopsy results. If the biopsy shows no evidence of dysplasia he can have a repeat upper endoscopy in 2 years based on his overall medical condition.
[2020-04-10 08:27] VITALS: BP 136/74; PULSE 65; RESP 18
== END 2020-04-10 08:46 | disposition home or self-care (01) ==
LOC: ORWHC2ENDO 06:55
PROVIDERS: ATTEND Internal Medicine Gastroenterology
DX: K22.70 Barrett's esophagus without dysplasia (principal); K44.9 Diaphragmatic hernia without obstruction or gangrene; K21.9 Gastro-esophageal reflux disease without esophagitis; E78.5 Hyperlipidemia, unspecified; J44.9 Chronic obstructive pulmonary disease, unspecified; E11.9 Type 2 diabetes mellitus without complications; Z88.2 Allergy status to sulfonamides; Z95.1 Presence of aortocoronary bypass graft; Z95.4 Presence of other heart-valve replacement; Z98.890 Other specified postprocedural states; Z85.46 Personal history of malignant neoplasm of prostate; Z79.84 Long term (current) use of oral hypoglycemic drugs; Z79.899 Other long term (current) drug therapy
CPT/HCPCS: 88305; 43239; J2001; J2704

== ENCOUNTER → 2020-04-13 | Outpatient (CLI) | payer MEDICARE, BC ==
--- NOTE | 2020-04-14 23:29 | MR ---
EXAMINATION TYPE: MR pancreas wo/w con DATE OF EXAM: 04/13/2020 COMPARISON: 03/04/2019 HISTORY: Cyst of pancreas. CONTRAST: Standard multiplanar, multisequence MRI departmental protocol utilizing 7 mL intravenous Gadavist rosibel olinium contrast. There is no evidence of pleural effusion. There is no sign of ascites. Liver and spleen have normal s ize and contour. There is 1 cm low signal area in the dependent gallbladder consistent with a gallsto ne. Gallbladder has normal size. The bile ducts are not dilated. There is no discrete liver mass. Spl een appears intact. The stomach has normal size and contour. There is no adrenal mass. There are left side renal cortical cysts that measure up to 3 cm. There is no evidence of a solid renal mass. There is no hydronephrosis. There is no evidence of retroperitonea l adenopathy. There is 2.4 cm rounded thin wall cystic fluid collection within the pancreatic head. Fluid has unifo rm high signal on the T2 images. The contrast images show no pathologic enhancement. IMPRESSION: Thin-walled simple cyst in the pancreatic head measures 2.4 cm and is increased 4 mm compared to old exam of 03/04/2019. I have a low suspicion of malignancy. Left renal cortical cysts are unchanged.
== END | disposition home or self-care (01) ==
LOC: RADMRIMAIN 09:54
PROVIDERS: ATTEND Internal Medicine Gastroenterology
DX: K86.2 Cyst of pancreas (principal); N28.1 Cyst of kidney, acquired
CPT/HCPCS: 74183; A9585

== ENCOUNTER 2020-06-03 11:21 | Emergency (ER) | payer MEDICARE, BC ==
[2020-06-03 11:26] VITALS: RESP 18; TEMP 98.3
--- NOTE | 2020-06-03 11:58 | ED ---
General Adult HPI - General Chief complaint: Shortness of Breath Stated complaint: sob Time Seen by Provider: 06/03/20 11:34 Source: patient Mode of arrival: ambulatory Limitations: no limitations - History of Present Illness Initial comments: Dictation was produced using Bit[employer] dictation software. please excuse any grammatical, word or spelling errors. This patient was cared for during a federal and state declared state of emergency secondary to Covid 19 Chief Complaint: 89-year-old male sent in by nurse practitioner for URI symptoms History of Present Illness: Patient is an 89-year-old male he over the last 3 days has been experiencing urinary type symptoms. He is having a nonproductive cough. States that he has been having a fever. He feels congested in his face and short of breath. Patient has been taking Mucinex and Tylenol at home. He went to see the nurse practitioner at his primary care physician's office where evaluated him and sent to the emergency department for evaluation. She denies feeling very ill. The ROS documented in this emergency department record has been reviewed and confirmed by me. Those systems with pertinent positive or negative responses have been documented in the HPI. All other systems are other negative and/or noncontributory. PHYSICAL EXAM: General Impression: Alert and oriented x3, not in acute distress HEENT: Normocephalic atraumatic, extra-ocular movements intact, pupils equal and reactive to light bilaterally, mucous membranes moist. Cardiovascular: Heart regular rate and rhythm Chest: Able to complete full sentences, no retractions, no tachypnea, diffuse lung crackles auscultation of the lungs Abdomen: abdomen soft, non-tender, non-distended, no organomegaly Musculoskeletal: Pulses present and equal in all extremities, no peripheral edema Motor: no focal deficits noted Neurological: CN II-XII grossly intact, no focal motor or sensory deficits noted Skin: Intact with no visualized rashes Psych: Normal affect and mood ED course: 89 y Old male presents with respiratory infectious symptoms for the last 3 days. All signs upon arrival are within acceptable limits. Patient has multiple comorbidities. At bedside he does not appear to be in any distress. He is talking comfortably and not showing any signs of respiratory difficulty. Laboratory evaluation obtained. CBC, metabolic panel is unremarkable. Coag, influenza test is negative. Chest x-ray shows borderline heart size. This findings of emphysema and strandy by basilar areas of atelectasis. This point there is no symptoms to suggest community acquired pneumonia or bacterial process. Patient has good outpatient follow-up. At this point no indication to start any antibiotics or any other treatment. Patient told to follow-up in 2-3 days with primary care physician. EKG interpretation: Ventricular rate 63, sinus rhythm,. Interval to 46, QRS 176, QTC 483. Right bundle branch block. Sinus rhythm, widened QRS duration of 176 - Related Data Home Medications Medication Instructions Recorded Confirmed metFORMIN HCL [Glucophage] 500 mg PO DAILY 03/22/14 06/03/20 Ascorbic Acid [Vitamin C] 1,000 mg PO DAILY 07/01/14 06/03/20 Aspirin EC [Ecotrin Low Dose] 81 mg PO HS 07/01/14 06/03/20 Esomeprazole Magnesium [NexIUM] 40 mg PO BID 07/01/14 06/03/20 Lutein 10 mg PO HS 07/01/14 06/03/20 Montelukast Sodium 10 mg PO HS 07/01/14 06/03/20 Albuterol Sulfate [Ventolin HFA] 2 puff INHALATION RT-QID PRN 08/02/14 06/03/20 Cholecalciferol [Vitamin D3 (25 1,000 unit PO HS 08/02/14 06/03/20 Mcg = 1000 Iu)] [place]-3 Fatty Acids/Fish Oil [Fish 1 cap PO HS 05/23/18 06/03/20 Oil 1,000 mg Softgel] Fluticasone Propion/Salmeterol 1 puff INHALATION RT-BID 04/08/20 06/03/20 [Wixela 500-50 Inhub] Acetaminophen [Tylenol] 1,000 mg PO Q4-6H PRN 06/03/20 06/03/20 Albuterol Nebulized [Ventolin 2.5 mg INHALATION RT-TID PRN 06/03/20 06/03/20 Nebulized] Fexofenadine HCl [Mally Allergy] 180 mg PO DAILY 06/03/20 06/03/20 Simvastatin [Zocor] 40 mg PO HS 06/03/20 06/03/20 guaiFENesin [Mucinex] 600 mg PO BID PRN 06/03/20 06/03/20 Allergies Allergy/AdvReac Type Severity Reaction Status Date / Time shellfish derived Allergy MAKES Verified 06/03/20 12:52 HANDS RED AND ITCHY Sulfa (Sulfonamide Allergy Swelling Verified 06/03/20 12:52 Antibiotics) DUST,TREES,GRASS Allergy Wheezing Uncoded 06/03/20 11:26 Review of Systems ROS Statement: Those systems with pertinent positive or pertinent negative responses have been documented in the HPI. ROS Other: All systems not noted in ROS Statement are negative. Past Medical History Past Medical History: Asthma, Cancer, COPD, Diabetes Mellitus, Hearing Disorder / Deafness, Hyperlipidemia, Osteoarthritis (OA), Pneumonia Additional Past Medical History / Comment(s): hx Prostate Cancer-no raditation or chemo, skin cancer, gout, FREQ Bronchitis and Pneumonia; RARE INFECTION IN LUNG 08/01/2014- PSEUDOMONAS TRACHEOBRONCHITIS. CORDOBA'S esophagus,.hiatal hernia, diverticulitis, pancreatic cysts, "weak bladder", anemia,paul hearing aides History of Any Multi-Drug Resistant Organisms: None Reported Past Surgical History: Cardiac Valve Replacement, Coronary Bypass/CABG, Heart Catheterization, Hernia Repair, Prostate Surgery Additional Past Surgical History / Comment(s): Aortic (pig) Valve Replacement and TRIPLE CABG 2006. Resection of Basal Cell CA Leg; PICC line/later removed, nasal sx-deviated septum, paul cataracts, prostatectomy,hernia repair x4 Past Anesthesia/Blood Transfusion Reactions: No Reported Reaction Past Psychological History: No Psychological Hx Reported Smoking Status: Never smoker Past Alcohol Use History: None Reported Past Drug Use History: None Reported - Past Family History Father Family Medical History: Cancer Additional Family Medical History / Comment(s): lung and brain Brother(s) Family Medical History: Cancer, Deep Vein Thrombosis (DVT) Additional Family Medical History / Comment(s): lung Sister(s) Family Medical History: Cancer Additional Family Medical History / Comment(s): lung ca General Exam Limitations: no limitations Course Vital Signs 06/03/20 06/03/20 06/03/20 11:23 12:25 12:31 Temperature 98.3 F Pulse Rate 63 73 Respiratory 18 18 18 Rate Blood Pressure 167/67 139/78 O2 Sat by Pulse 100 99 Oximetry Medical Decision Making - Lab Data Result diagrams: 06/03/20 12:22 06/03/20 12:22 Lab Results 03/08/21 03/08/21 03/08/21 Range/Units 11:57 12:22 12:22 WBC 6.6 (3.8-10.6) k/uL RBC 4.23 L (4.30-5.90) m/uL Hgb 12.4 L (13.0-17.5) gm/dL Hct 36.7 L (39.0-53.0) % MCV 86.7 (80.0-100.0) fL MCH 29.2 (25.0-35.0) pg MCHC 33.7 (31.0-37.0) g/dL RDW 13.7 (11.5-15.5) % Plt Count 268 (150-450) k/uL MPV 6.7 Neutrophils % 61 % Lymphocytes % 25 % Monocytes % 5 % Eosinophils % 8 % Basophils % 0 % Neutrophils # 4.0 (1.3-7.7) k/uL Lymphocytes # 1.6 (1.0-4.8) k/uL Monocytes # 0.3 (0-1.0) k/uL Eosinophils # 0.5 (0-0.7) k/uL Basophils # 0.0 (0-0.2) k/uL Sodium 135 L (137-145) mmol/L Potassium 4.8 (3.5-5.1) mmol/L Chloride 104 (98-107) mmol/L Carbon Dioxide 20 L (22-30) mmol/L Anion Gap 11 mmol/L BUN 27 H (9-20) mg/dL Creatinine 0.90 (0.66-1.25) mg/dL Est GFR (CKD-EPI)AfAm 87 (>60 ml/min/1.73 sqM) Est GFR (CKD-EPI)NonAf 75 (>60 ml/min/1.73 sqM) Glucose 103 H (74-99) mg/dL Calcium 9.1 (8.4-10.2) mg/dL Magnesium 1.9 (1.6-2.3) mg/dL Coronavirus (PCR) Not Detected (Not Detectd) Influenza Type A RNA (Not Detectd) Influenza Type B (PCR) (Not Detectd) 06/03/20 Range/Units 12:39 WBC (3.8-10.6) k/uL RBC (4.30-5.90) m/uL Hgb (13.0-17.5) gm/dL Hct (39.0-53.0) % MCV (80.0-100.0) fL MCH (25.0-35.0) pg MCHC (31.0-37.0) g/dL RDW (11.5-15.5) % Plt Count (150-450) k/uL MPV Neutrophils % % Lymphocytes % % Monocytes % % Eosinophils % % Basophils % % Neutrophils # (1.3-7.7) k/uL Lymphocytes # (1.0-4.8) k/uL Monocytes # (0-1.0) k/uL Eosinophils # (0-0.7) k/uL Basophils # (0-0.2) k/uL Sodium (137-145) mmol/L Potassium (3.5-5.1) mmol/L Chloride (98-107) mmol/L Carbon Dioxide (22-30) mmol/L Anion Gap mmol/L BUN (9-20) mg/dL Creatinine (0.66-1.25) mg/dL Est GFR (CKD-EPI)AfAm (>60 ml/min/1.73 sqM) Est GFR (CKD-EPI)NonAf (>60 ml/min/1.73 sqM) Glucose (74-99) mg/dL Calcium (8.4-10.2) mg/dL Magnesium (1.6-2.3) mg/dL Coronavirus (PCR) (Not Detectd) Influenza Type A RNA Not Detected (Not Detectd) Influenza Type B (PCR) Not Detected (Not Detectd) Disposition Clinical Impression: Cough Disposition: HOME SELF-CARE Condition: Good Instructions (If sedation given, give patient instructions): Upper Respiratory Infection (ED) Is patient prescribed a controlled substance at d/c from ED?: No Referrals: Adithya Mendoza MD [Primary Care Provider] - 1-2 days Time of Disposition: 13:39
[2020-06-03 12:36] LABS: Basophils % (A) 0 %; Eosinophils # (A) 0.5 k/uL (0-0.7); Eosinophils % (A) 8 %; HCT 36.7 % (39.0-53.0); HGB 12.4 gm/dL (13.0-17.5); Lymphocytes # (A) 1.6 k/uL (1.0-4.8); Lymphocytes % (A) 25 %; MCH 29.2 pg (25.0-35.0); MCHC 33.7 g/dL (31.0-37.0); MCV 86.7 fL (80.0-100.0); Mean Platelet Volume 6.7; Monocytes # (A) 0.3 k/uL (0-1.0); Monocytes % (A) 5 %; Neutrophils % (A) 61 %; Platelet Count 268 k/uL (150-450); RBC 4.23 m/uL (4.30-5.90); RDW 13.7 % (11.5-15.5); WBC 6.6 k/uL (3.8-10.6)
[2020-06-03 12:46] LABS: Calcium 9.1 mg/dL (8.4-10.2); Magnesium 1.9 mg/dL (1.6-2.3); Potassium 4.8 mmol/L (3.5-5.1)
--- NOTE | 2020-06-03 12:46 | XR ---
EXAMINATION TYPE: XR chest 1V portable DATE OF EXAM: 06/03/2020 Comparison: 06/16/2018 Clinical History: 89-year-old male cough Findings: Heart is borderline enlarged. Rounded retrocardiac opacity. Median sternotomy wires and post-CABG cli ps. Mild hyperinflation. There are strandy opacities in the lower lungs likely atelectasis. No pleura l effusion. Impression: 1. Borderline heart size. Prior CABG changes. 2. Hyperinflation may reflect underlying emphysema. 3. Strandy bibasilar areas of atelectasis. 4. At least a small sized hiatal hernia.
[2020-06-03 13:57] VITALS: BP 140/81; PULSE 65
== END 2020-06-03 14:01 | disposition home or self-care (01) ==
LOC: EC 11:21
DX: R05 Cough (principal); R50.9 Fever, unspecified; R06.02 Shortness of breath; M10.9 Gout, unspecified; J44.9 Chronic obstructive pulmonary disease, unspecified; E11.9 Type 2 diabetes mellitus without complications; E78.5 Hyperlipidemia, unspecified; M19.90 Unspecified osteoarthritis, unspecified site; Z20.822 Contact with and (suspected) exposure to COVID-19; Z79.51 Long term (current) use of inhaled steroids; Z79.82 Long term (current) use of aspirin; Z79.84 Long term (current) use of oral hypoglycemic drugs; Z79.899 Other long term (current) drug therapy; Z95.1 Presence of aortocoronary bypass graft; Z95.5 Presence of coronary angioplasty implant and graft; Z85.828 Personal history of other malignant neoplasm of skin; Z88.2 Allergy status to sulfonamides; Z91.013 Allergy to seafood; Z91.048 Other nonmedicinal substance allergy status; Z95.2 Presence of prosthetic heart valve; Z98.42 Cataract extraction status, left eye; Z98.41 Cataract extraction status, right eye; Z80.1 Family history of malignant neoplasm of trachea, bronchus and lung
CPT/HCPCS: 36415; 71045; 80048; 83735; 85025; 87502; 87635; 93005; 99285

== ENCOUNTER 2020-07-13 17:17 | Emergency (ER) | payer MEDICARE, BC ==
[2020-07-13 17:28] VITALS: BP 189/74; PULSE 95; RESP 16; TEMP 98.8
[2020-07-13] MEDS ORDERED: ACET/COD 300 MG/30 MG STARTER PACK 6 TAB BTL PO STA (17:42)
--- NOTE | 2020-07-13 17:50 | ED ---
General Adult HPI - General Chief complaint: Dental/Oral Stated complaint: Dental/Oral Time Seen by Provider: 07/13/20 17:30 Source: patient, RN notes reviewed Mode of arrival: ambulatory Limitations: no limitations - History of Present Illness Initial comments: Patient is a pleasant 89-year-old male presents emergency Department with complaints of dentalgia. Onset of symptoms was several days ago. Patient has not recently seen a dentist. Patient states he is having some discomfort with eating and drinking. Patient states he is eating some and still drinking fluids. No dyspnea. No fevers. No swelling. Patient does have history of previous dental problems. Patient called the dentist however is not able to get in for around 10 days. - Related Data Home Medications Medication Instructions Recorded Confirmed metFORMIN HCL [Glucophage] 500 mg PO DAILY 03/22/14 06/03/20 Ascorbic Acid [Vitamin C] 1,000 mg PO DAILY 07/01/14 06/03/20 Aspirin EC [Ecotrin Low Dose] 81 mg PO HS 07/01/14 06/03/20 Esomeprazole Magnesium [NexIUM] 40 mg PO BID 07/01/14 06/03/20 Lutein 10 mg PO HS 07/01/14 06/03/20 Montelukast Sodium 10 mg PO HS 07/01/14 06/03/20 Albuterol Sulfate [Ventolin HFA] 2 puff INHALATION RT-QID PRN 08/02/14 06/03/20 Cholecalciferol [Vitamin D3 (25 1,000 unit PO HS 08/02/14 06/03/20 Mcg = 1000 Iu)] [place]-3 Fatty Acids/Fish Oil [Fish 1 cap PO HS 05/23/18 06/03/20 Oil 1,000 mg Softgel] Fluticasone Propion/Salmeterol 1 puff INHALATION RT-BID 04/08/20 06/03/20 [Wixela 500-50 Inhub] Acetaminophen [Tylenol] 1,000 mg PO Q4-6H PRN 06/03/20 06/03/20 Albuterol Nebulized [Ventolin 2.5 mg INHALATION RT-TID PRN 06/03/20 06/03/20 Nebulized] Fexofenadine HCl [Mally Allergy] 180 mg PO DAILY 06/03/20 06/03/20 Simvastatin [Zocor] 40 mg PO HS 06/03/20 06/03/20 guaiFENesin [Mucinex] 600 mg PO BID PRN 06/03/20 06/03/20 Previous Rx's Medication Instructions Recorded Celecoxib [CeleBREX] 50 mg PO DAILY #7 capsule 07/13/20 Allergies Allergy/AdvReac Type Severity Reaction Status Date / Time shellfish derived Allergy MAKES Verified 06/03/20 12:52 HANDS RED AND ITCHY Sulfa (Sulfonamide Allergy Swelling Verified 06/03/20 12:52 Antibiotics) DUST,TREES,GRASS Allergy Wheezing Uncoded 06/03/20 11:26 Review of Systems ROS Statement: Those systems with pertinent positive or pertinent negative responses have been documented in the HPI. ROS Other: All systems not noted in ROS Statement are negative. Constitutional: Denies: fever Eyes: Denies: eye pain ENT: Reports: as per HPI, dental pain. Denies: ear pain Respiratory: Denies: cough Cardiovascular: Denies: chest pain Endocrine: Denies: fatigue Gastrointestinal: Denies: abdominal pain Genitourinary: Denies: dysuria Musculoskeletal: Denies: back pain Skin: Denies: rash Neurological: Denies: headache Past Medical History Past Medical History: Asthma, Cancer, COPD, Diabetes Mellitus, Hearing Disorder / Deafness, Hyperlipidemia, Osteoarthritis (OA), Pneumonia Additional Past Medical History / Comment(s): hx Prostate Cancer-no raditation or chemo, skin cancer, gout, FREQ Bronchitis and Pneumonia; RARE INFECTION IN LUNG 08/01/2014- PSEUDOMONAS TRACHEOBRONCHITIS. CORDOBA'S esophagus,.hiatal hernia, diverticulitis, pancreatic cysts, "weak bladder", anemia,paul hearing aides History of Any Multi-Drug Resistant Organisms: None Reported Past Surgical History: Cardiac Valve Replacement, Coronary Bypass/CABG, Heart Catheterization, Hernia Repair, Prostate Surgery Additional Past Surgical History / Comment(s): Aortic (pig) Valve Replacement and TRIPLE CABG 2006. Resection of Basal Cell CA Leg; PICC line/later removed, nasal sx-deviated septum, paul cataracts, prostatectomy,hernia repair x4 Past Anesthesia/Blood Transfusion Reactions: No Reported Reaction Past Psychological History: No Psychological Hx Reported Smoking Status: Never smoker Past Alcohol Use History: None Reported Past Drug Use History: None Reported - Past Family History Father Family Medical History: Cancer Additional Family Medical History / Comment(s): lung and brain Brother(s) Family Medical History: Cancer, Deep Vein Thrombosis (DVT) Additional Family Medical History / Comment(s): lung Sister(s) Family Medical History: Cancer Additional Family Medical History / Comment(s): lung ca General Exam Limitations: no limitations General appearance: alert, in no apparent distress Head exam: Present: normocephalic Eye exam: Present: normal appearance ENT exam: Present: other (Poor dentition. Right upper molar/premolar region with tender tooth. No surrounding swelling or erythema.) Neck exam: Present: normal inspection Respiratory exam: Present: normal lung sounds bilaterally Cardiovascular Exam: Present: regular rate, normal rhythm GI/Abdominal exam: Present: soft. Absent: tenderness Course Vital Signs 07/13/20 17:24 Temperature 98.8 F Pulse Rate 95 Respiratory 16 Rate Blood Pressure 189/74 O2 Sat by Pulse 97 Oximetry Disposition Clinical Impression: Dentalgia Disposition: HOME SELF-CARE Condition: Stable Instructions (If sedation given, give patient instructions): Toothache (ED) Additional Instructions: Please do follow-up with primary care physician in the next day or 2 for recheck. Please also follow-up with oral maxillary facial surgeon, number listed for Dr. Carter. Please also follow-up dentist. Return for fever, swelling, increased pain, worsening or changing symptoms or other concerns. Prescription for anti-inflammatories has been sent to your pharmacy. Prescriptions: Celecoxib [CeleBREX] 50 mg PO DAILY #7 capsule Is patient prescribed a controlled substance at d/c from ED?: No Referrals: Adithya Mendoza MD [Primary Care Provider] - 1-2 days Flakito Carter DDS [STAFF PHYSICIAN] - 1-2 days Time of Disposition: 17:44
== END 2020-07-13 18:06 | disposition home or self-care (01) ==
LOC: EC 17:17
DX: K08.89 Other specified disorders of teeth and supporting structures (principal); J44.9 Chronic obstructive pulmonary disease, unspecified; E78.5 Hyperlipidemia, unspecified; M19.90 Unspecified osteoarthritis, unspecified site; H91.90 Unspecified hearing loss, unspecified ear; E11.36 Type 2 diabetes mellitus with diabetic cataract; Z85.46 Personal history of malignant neoplasm of prostate; Z87.19 Personal history of other diseases of the digestive system; Z95.2 Presence of prosthetic heart valve; Z95.1 Presence of aortocoronary bypass graft; Z79.51 Long term (current) use of inhaled steroids; Z79.82 Long term (current) use of aspirin; Z79.84 Long term (current) use of oral hypoglycemic drugs
CPT/HCPCS: 99282